=== PATIENT | male | born 1985 | race African-American/Black ===

== ENCOUNTER 2018-05-21 06:49 | Emergency (ER) | payer SELFPAY ==
--- NOTE | 2018-05-21 09:04 | RAD ---
SINGLE VIEW OF THE CHEST: COMPARISON: 04/22/16. HISTORY: Dry mouth and shoulder pain. Cough. FINDINGS: Single view of the chest shows a normal sized cardiomediastinal silhouette. There is no evidence of c onsolidation, mass, or pleural effusion. The bones are unremarkable. IMPRESSION: No evidence of acute cardiopulmonary disease. POS: [facility]
== END 2018-05-21 10:09 | disposition home or self-care (01) ==
LOC: ERS 06:49
DX: J40 Bronchitis, not specified as acute or chronic (principal); Z71.6 Tobacco abuse counseling; F17.210 Nicotine dependence, cigarettes, uncomplicated; F41.9 Anxiety disorder, unspecified
CPT/HCPCS: 71045; 94640; 99406; J7620

== ENCOUNTER 2018-05-27 00:36 | Emergency (ER) | payer SELFPAY ==
--- NOTE | 2018-05-27 08:43 | RAD ---
2 VIEW CHEST: Date: 05/27/18 HISTORY: Cough. FINDINGS: Lung cox appear clear. No infiltrate. Heart and mediastinum unremarkable. Osseous structures unrem arkable. IMPRESSION: No acute abnormality. POS: [facility]
== END 2018-05-27 01:47 | disposition home or self-care (01) ==
LOC: ERS 00:36
DX: J20.9 Acute bronchitis, unspecified (principal); J45.909 Unspecified asthma, uncomplicated; F41.9 Anxiety disorder, unspecified; F17.210 Nicotine dependence, cigarettes, uncomplicated
CPT/HCPCS: 71046

== ENCOUNTER 2018-06-01 20:41 | Emergency (ER) | payer SELFPAY | END 2018-06-01 21:25 | disposition home or self-care (01) | LOC: ERS 20:41 | DX: R42 Dizziness and giddiness (principal); F41.9 Anxiety disorder, unspecified; J45.909 Unspecified asthma, uncomplicated; F17.210 Nicotine dependence, cigarettes, uncomplicated | CPT/HCPCS: 94760 ==

== ENCOUNTER 2018-06-25 23:31 | Emergency (ER) | payer SELFPAY ==
[2018-06-26 00:01] LABS: #Eosinphils 0.6 thou/uL (0.0-0.7); #Lymphocytes 2.4 thou/uL (1.20-3.40); #Monocytes 0.8 thou/uL (0.11-0.59); #Neutrophils 3.3 thou/uL (1.40-6.50); %Basophils 0.4 % (0.0-1.0); %Eosinophils 8.7 % (0.0-10.0); %Lymphocytes 33.9 % (21.0-51.0); %Monocytes 10.7 % (0.0-10.0); %Neutrophils 46.3 % (42.0-75.0); Hemoglobin 14.2 g/dL (14.0-18.0); Mean Corpuscular HGB CONC 32.9 g/dL (32.0-36.0); Mean Corpuscular Hemoglobin 29.8 pg (27.0-31.0); Mean Corpuscular Volume 90.8 fL (78.0-98.0); Mean Platelet Volume 8.2 fL (7.4-10.4); Platelet Count 173 thou/uL (130-400); RBC Distribution Width 11.3 % (11.5-14.5); Red Blood Cell (RBC) Count 4.77 mill/uL (4.70-6.10)
[2018-06-26 00:20] LABS: ALT (SGPT) 17 U/L (8-55); AST (SGOT) 19 U/L (5-34); Albumin 4.1 g/dL (3.5-5.0); Alkaline Phosphatase 59 U/L (40-150); Anion Gap 11 mmol/L (10-20); BUN (Urea Nitrogen) 14 mg/dL (8.9-20.6); Bilirubin, Total 0.5 mg/dL (0.2-1.2); CK (CPK) 359 U/L (30-200); Calc. Creatinine Clearance 0 mL/min (70-130); Calcium 9.2 mg/dL (7.8-10.44); Carbon Dioxide 24 mmol/L (22-29); Chloride 108 mmol/L (98-107); Estimated GFR-MDRD 61; Globulin 2.9 g/dL (2.4-3.5); Glucose 108 mg/dL (70-105); Potassium 3.9 mmol/L (3.5-5.1); Sodium 139 mmol/L (136-145)
== END 2018-06-26 00:45 | disposition home or self-care (01) ==
LOC: ERS 23:31
DX: F16.10 Hallucinogen abuse, uncomplicated (principal); J45.909 Unspecified asthma, uncomplicated; F17.210 Nicotine dependence, cigarettes, uncomplicated
CPT/HCPCS: 80053; 82550; 85025; 96360

== ENCOUNTER 2018-10-21 20:50 | Emergency (ER) | payer SELFPAY ==
[2018-10-21 21:08] LABS: Bilirubin Negative (Negative); Blood, Urine Negative (Negative); Clarity CLOUDY (Clear); Glucose, Urine (Dipstick) Negative (Negative); Leukocyte Negative (Negative); Nitrite Negative (Negative); Protein, Urine (Dipstick) Negative (Neg-Trace); Specific Gravity, Urine 1.012 (1.002-1.036); Urobilinogen 0.2 mg/dL (0.2-1.0); pH, Urine 7.5 (5.0-9.0)
[2018-10-22 23:51] LABS: Chlamydia by PCR Not Detected (NotDetected); GC by PCR Not Detected (NotDetected)
== END 2018-10-21 23:42 | disposition home or self-care (01) ==
LOC: ERS 20:50
DX: R33.9 Retention of urine, unspecified (principal); J45.909 Unspecified asthma, uncomplicated; F17.210 Nicotine dependence, cigarettes, uncomplicated; F41.9 Anxiety disorder, unspecified
CPT/HCPCS: 51702; 81003; 87086; 87491; 87591

== ENCOUNTER 2018-12-19 00:49 | Emergency (ER) | payer SELFPAY | END 2018-12-19 01:20 | disposition home or self-care (01) | LOC: ERS 00:49 | DX: R19.7 Diarrhea, unspecified (principal); R11.2 Nausea with vomiting, unspecified; F12.10 Cannabis abuse, uncomplicated; F17.210 Nicotine dependence, cigarettes, uncomplicated | CPT/HCPCS: 99284 ==

== ENCOUNTER 2018-12-22 15:38 | Emergency (ER) | payer SELFPAY ==
[2018-12-22 16:25] LABS: #Basophils 0.1 thou/uL (0.0-0.2); #Eosinphils 0.5 thou/uL (0.0-0.7); #Lymphocytes 2.2 thou/uL (1.20-3.40); #Monocytes 0.7 thou/uL (0.11-0.59); #Neutrophils 4.7 thou/uL (1.40-6.50); %Basophils 1.2 % (0.0-1.0); %Eosinophils 5.8 % (0.0-10.0); %Monocytes 8.5 % (0.0-10.0); %Neutrophils 57.5 % (42.0-75.0); Hemoglobin 14.9 g/dL (14.0-18.0); Mean Corpuscular Hemoglobin 29.2 pg (27.0-31.0); Mean Corpuscular Volume 91.3 fL (78.0-98.0); Mean Platelet Volume 8.1 fL (7.4-10.4); Platelet Count 213 thou/uL (130-400); Red Blood Cell (RBC) Count 5.09 mill/uL (4.70-6.10); White Blood Cell (WBC) Count 8.2 thou/uL (4.8-10.8)
[2018-12-22 16:46] LABS: ALT (SGPT) 26 U/L (8-55); AST (SGOT) 37 U/L (5-34); Alkaline Phosphatase 57 U/L (40-150); Anion Gap 10 mmol/L (10-20); BUN (Urea Nitrogen) 11 mg/dL (8.9-20.6); Bilirubin, Total 0.7 mg/dL (0.2-1.2); Calc. Creatinine Clearance 0 mL/min (70-130); Calcium 9.2 mg/dL (7.8-10.44); Carbon Dioxide 28 mmol/L (22-29); Chloride 107 mmol/L (98-107); Estimated GFR-MDRD 70; Globulin 2.6 g/dL (2.4-3.5); Glucose 85 mg/dL (70-105); Lipase 10 U/L (8-78); Potassium 4.3 mmol/L (3.5-5.1); Protein, Total 6.6 g/dL (6.0-8.3); Sodium 141 mmol/L (136-145)
[2018-12-22 16:52] LABS: Bilirubin Negative (Negative); Blood, Urine Negative (Negative); Clarity CLEAR (Clear); Glucose, Urine (Dipstick) Negative (Negative); Leukocyte Negative (Negative); Nitrite Negative (Negative); Protein, Urine (Dipstick) Negative (Neg-Trace); Specific Gravity, Urine 1.004 (1.002-1.036); Urobilinogen 0.2 mg/dL (0.2-1.0)
[2018-12-22] MEDS ORDERED: Morphine 4 MG/ML VIAL ONE (18:06)
--- NOTE | 2018-12-22 19:40 | CT ---
CT ABDOMEN AND PELVIS NONCONTRAST: 12/22/18 HISTORY: Left flank pain. FINDINGS: Each renal collecting system, ureter, and the urinary bladder are decompressed without stone evident . Phleboliths are noted within the pelvis. Lack of contrast limits evaluation for other abnormalities. No evidence of bowel obstruction. No free air. IMPRESSION: No CT evidence of urinary tract obstruction or calcification. POS: [facility]
[2018-12-22] MEDS ORDERED: Ketorolac Tromethamine 30 MG/ML VIAL ONE (19:56)
== END 2018-12-22 20:10 | disposition home or self-care (01) ==
LOC: ERS 15:38
DX: R10.9 Unspecified abdominal pain (principal); F17.210 Nicotine dependence, cigarettes, uncomplicated; F41.9 Anxiety disorder, unspecified
CPT/HCPCS: 36415; 74176; 80053; 81003; 83690; 85025; 96361; 96374; 96375; J1885; J2270

== ENCOUNTER 2019-01-13 07:20 | Emergency (ER) | payer SELFPAY ==
[2019-01-13] MEDS ORDERED: Metoclopramide HCl 10 MG TAB ONE (08:17)
[2019-01-13] MEDS ORDERED: diphenhydrAMINE 25 MG CAP ONE (08:17)
[2019-01-13] MEDS ORDERED: Acetaminophen 500 MG TAB ONE (08:17)
--- NOTE | 2019-01-13 09:09 | CT ---
NONCONTRAST CT HEAD: Date: 01/13/19 HISTORY: Headache. COMPARISON: 10/27/11. FINDINGS: There is no evidence of a hemorrhage, acute infarction, mass effect, or midline shift. Ventricular sy stem is normal in size, shape, and position. A few partially calcified nodules are seen within the bi frontal lobes, and the nodule within the right frontal lobe was seen on the prior exam. These finding s overall have a nonaggressive appearance. Calvarial structures are intact. Visualized paranasal sinu ses and mastoid air cells are clear. IMPRESSION: No acute intracranial abnormality is demonstrated. POS: [facility]
== END 2019-01-13 09:18 | disposition home or self-care (01) ==
LOC: ERS 07:20
DX: S06.9X9A Unspecified intracranial injury with loss of consciousness of unspecified duration, initial encounter (principal); F17.210 Nicotine dependence, cigarettes, uncomplicated; F41.9 Anxiety disorder, unspecified; W22.8XXA Striking against or struck by other objects, initial encounter
CPT/HCPCS: 70450; J8597; Q0163

== ENCOUNTER 2019-02-13 22:14 | Emergency (ER) | payer SELFPAY ==
[2019-02-13] MEDS ORDERED: Ketorolac Tromethamine 30 MG/ML VIAL ONE (23:50)
[2019-02-14 00:39] LABS: #Basophils 0.1 thou/uL (0.0-0.2); #Eosinphils 0.5 thou/uL (0.0-0.7); #Lymphocytes 3.2 thou/uL (1.20-3.40); #Monocytes 0.8 thou/uL (0.11-0.59); #Neutrophils 7.6 thou/uL (1.40-6.50); %Basophils 0.6 % (0.0-1.0); %Eosinophils 4.3 % (0.0-10.0); %Lymphocytes 26.3 % (21.0-51.0); %Monocytes 6.3 % (0.0-10.0); %Neutrophils 62.5 % (42.0-75.0); Hemoglobin 14.3 g/dL (14.0-18.0); Mean Corpuscular HGB CONC 31.7 g/dL (32.0-36.0); Mean Corpuscular Hemoglobin 29.2 pg (27.0-31.0); Mean Platelet Volume 8.8 fL (7.4-10.4); Platelet Count 214 thou/uL (130-400); RBC Distribution Width 11.1 % (11.5-14.5); Red Blood Cell (RBC) Count 4.92 mill/uL (4.70-6.10); White Blood Cell (WBC) Count 12.2 thou/uL (4.8-10.8)
[2019-02-14 00:57] LABS: ALT (SGPT) 15 U/L (8-55); AST (SGOT) 18 U/L (5-34); Albumin 3.6 g/dL (3.5-5.0); Alkaline Phosphatase 54 U/L (40-150); Anion Gap 8 mmol/L (10-20); BUN (Urea Nitrogen) 13 mg/dL (8.9-20.6); Bilirubin, Total 0.5 mg/dL (0.2-1.2); CK (CPK) 448 U/L (30-200); Calc. Creatinine Clearance 0 mL/min (70-130); Calcium 8.8 mg/dL (7.8-10.44); Carbon Dioxide 28 mmol/L (22-29); Chloride 108 mmol/L (98-107); Estimated GFR-MDRD 77; Globulin 2.5 g/dL (2.4-3.5); Glucose 99 mg/dL (70-105); Potassium 3.9 mmol/L (3.5-5.1); Protein, Total 6.1 g/dL (6.0-8.3); Sodium 140 mmol/L (136-145)
== END 2019-02-14 01:45 | disposition home or self-care (01) ==
LOC: ERS 22:14
DX: R51 Headache (principal); F41.9 Anxiety disorder, unspecified; Z71.6 Tobacco abuse counseling; F17.210 Nicotine dependence, cigarettes, uncomplicated
CPT/HCPCS: 80053; 82550; 85025; 87804; 96372; 99406; J1885